=== PATIENT | male | born 1940 | race Caucasian/White ===

== ENCOUNTER → 2017-05-27 | Outpatient (CLI) | payer MEDICARE ==
[~2017-05-27] MED LIST: ASPIRIN81 M1; ambien; xanax
--- NOTE | 2017-05-27 15:01 | Diagnostic Imaging Report ---
PROCEDURE:CT CHEST WITHOUT CONTRAST COMPARISON:Report chest x-ray 09/14/2007. No cross-sectional imaging of the chest at this institution for comparison. INDICATIONS:SMOKER TECHNIQUE:2.5 mm images were obtained from the lung apices through the adrenal glands without intravenous contrast administration. DLP: 264.6 mGy*cm FINDINGS: LUNGS:Mild centrilobular and paraseptal emphysema in the upper lung zones. There is posterior groundglass attenuation of articulation and extends into the lung bases. No consolidation. No soft tissue mass. Soft tissue nodule in the right lower lobe abutting the hilar vessels measures 1.1 x 1.2 cm and contains a central calcification. LYMPH NODES: No enlarged axillary, supraclavicular, or mediastinal lymph nodes. THYROID/BASE OF NECK: Low attenuated nodule the right thyroid lobe measures 2.0 x 2.1 cm. VASCULATURE:Scattered atherosclerotic calcifications of the aorta. The ascending aorta measures 3.6 x 3.5 cm. The main pulmonary artery measures 2.5 cm. MEDIASTINUMThe heart is normal in size. No pericardial effusion. The esophagus is normal. PLEURA:No pleural effusion. Lipoma in the lateral left chest between the second and third ribs measures 2.6 x 1.7 cm. CHEST WALL:Normal. LIMITED ABDOMEN:Visualized portions of the upper abdomen demonstrate no evidence of mass or infiltrate. BONES:Mild wedging of the T4 vertebral body. The spinal canal is patent. There is a fusion plate in the lower cervical spine, incompletely imaged. Visualized portion of the hardware is normal. The soft tissues are unremarkable. CONCLUSION: 1. Emphysema and minimal peripheral reticulation suggestive of early fibrosis. 2. Right lower lobe pulmonary nodule suggestive of a hamartoma or healed granulomatous inflammation. Annual surveillance of the lungs with low dose screening CT is recommended given the history of smoking. 3. Nodule in the right thyroid lobe as described above. Recommend further evaluation with thyroid ultrasound. 4. 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 Dictated by: Milo Arana M.D. on 05/27/2017 at 15:02 Electronically approved by: Milo Arana M.D. on 05/27/2017 at 15:02
== END ==
LOC: CT 13:52
PROVIDERS: ATTEND Family Medicine
DX: R07.89 Other chest pain (principal); R93.8 Abnormal findings on diagnostic imaging of other specified body structures; Z87.891 Personal history of nicotine dependence
CPT/HCPCS: 71250

== ENCOUNTER → 2017-07-06 | Outpatient (CLI) | payer MEDICARE ==
--- NOTE | 2017-07-08 08:11 | Diagnostic Imaging Report ---
TECHNIQUE: Magnetic resonance imaging of the LEFT HIP was performed WITHOUT injected contrast. HISTORY: Pain, left hip, chronic, at the time of the MRI the patient reportedly states the pain is right more than left COMPARISON: None available. FINDINGS: Bone: No focal or infiltrative bone marrow replacing abnormality. No osteonecrosis or acute fracture. Femoroacetabular Joint - left: Acetabular labrum: Complex degenerative tearing and attenuation, most notably the anterosuperior labrum. Articular Cartilage: Low to intermediate grade erosion of the weightbearing cartilage. Muscle and tendons: Focal high-grade partial tearing of the anterior fibers of the gluteus medius tendon near the greater trochanter (series 7 image 14) with trace adjacent fluid. Other: * Left convex curvature of the visualized lumbosacral spine with multilevel degenerative changes, likely moderate to severe, right greater than left. * Nonspecific heterogeneity and mild enlargement of the prostate on this nondiagnostic prostate MRI. * Incidentally, mild degenerative changes of the right hip. IMPRESSION: 1. Mild degenerative changes of the left hip, including degenerative tearing of the labrum. 2. Partial tearing of the left gluteus medius tendon and minimal left greater trochanteric bursitis. 3. Incompletely characterized moderate to severe degenerative changes of the visualized lumbosacral spine, right greater than left. Signed by: Dr. Georgi Kerr D.O., M.M.M. on 07/08/2017 8:07 AM
== END ==
LOC: MRI 09:23
PROVIDERS: ATTEND Family Medicine
DX: M25.552 Pain in left hip (principal); E04.1 Nontoxic single thyroid nodule

== ENCOUNTER → 2019-11-25 | Day surgery (SDC) | payer MEDICARE, OTHER ==
[2019-11-20 15:31] LABS: BASOPHILS % 0.6 % (0.0-1.0); EOSINOPHILS # (AUTO) 0.2 (0.0-0.4); EOSINOPHILS % 2.8 % (0.0-6.0); HEMATOCRIT 43.8 % (38.2-49.6); HEMOGLOBIN 14.2 g/dL (14.0-18.0); LYMPHOCYTES # (AUTO) 1.9 (1.0-3.2); LYMPHOCYTES % 34.7 % (18.0-39.1); MEAN CORPUSCULAR HEMOGLOBIN 30.9 pg (28-32); MEAN CORPUSCULAR HGB CONC 32.4 g/dL (31-35); MEAN CORPUSCULAR VOLUME 95.2 fL (81-99); MONOCYTES # (AUTO) 0.5 (0.2-0.8); MONOCYTES % 8.8 % (4.4-11.3); NEUTROPHILS # (AUTO) 2.8 (2.1-6.9); NEUTROPHILS % 52.7 % (38.7-80.0); PLATELET COUNT 229 x10e3/uL (140-360); RED CELL DISTRIBUTION WIDTH 15.1 % (11.7-14.4)
[~2019-11-25] MED LIST changes: +CLOPIDOGREL75 MG PO; +FLOMAX0.4 MG PO; +LIDOCAINE HCL 2% LOCAL INJ 5 ML SDV VIAL INJ ONE; +METOCLOPRAMIDE HCL 10 MG/2ML VIAL ONE; +PANTOPRAZOLE 40 MG 10ML VIAL ONE; +PROPOFOL IV EMULSION 10 MG/ML 20 ML VIAL ONE; +SODIUM CHLORIDE 0.9% 50ML 50 ML ONE
[2019-11-25 11:10] VITALS: BP 124/85
--- NOTE | 2019-11-26 03:53 | Operative Report ---
DATE OF PROCEDURE: 11/25/2019 SURGEON: Juan Manuel Bella MD PROCEDURE: EGD with biopsies. INDICATIONS FOR EGD: Upper abdominal pain, melena. MEDICATIONS: The patient was done under MAC, please see anesthesiologist's note. PROCEDURE IN DETAIL: With the patient in the left lateral decubitus position, a flexible fiberoptic Olympus gastroscope was introduced into the esophagus under direct visualization without any difficulty. There was some patchy erythema noted in distal esophagus. A minute tongue of velvety red mucosa was noted to extend proximally from the GE junction that was biopsied to rule out Harrison. The focal nodularity was noted at the GE junction that was biopsied. The scope was then advanced with ease into the stomach, traversing a small sliding hiatal hernia. Mucosa overlying the antrum and the body revealed some patchy intense erythema and moderate edema, and biopsies were obtained and sent to stain for H. pylori. The pylorus was of normal contour and shape, was intubated with ease and the scope was advanced all the way to the second portion of the duodenum. The scope was then withdrawn slowly. An approximately 1 cm ulcer with heaped up margins was noted in the distal bulb. There was no active bleeding. The scope was then withdrawn back into the stomach and retroflexed, mucosa overlying the fundus and the cardia appeared to be within normal limits. The scope was then straightened out, it was subsequently withdrawn, and the patient tolerated the procedure well. IMPRESSION: 1. Distal esophagitis, mild. 2. Rule out Harrison esophagus. 3. Focal nodularity, GE junction, biopsied. 4. Small sliding hiatal hernia. 5. Gastritis, biopsied, biopsies sent to stain for Helicobacter pylori. 6. Large ulcer, distal duodenal bulb without active bleeding. PLAN: Follow up histology. Initiate Protonix 40 mg one p.o. q.a.m. before meals and Carafate 1 g p.o. before meals t.i.d. and at bedtime. Juan Manuel Bella MD [facility] [place] /[id number] cc: Yandel Wright DO
== END | disposition home or self-care (01) ==
LOC: OR 08:50
PROVIDERS: ATTEND Internal Medicine Gastroenterology
DX: K29.50 Unspecified chronic gastritis without bleeding (principal); K26.9 Duodenal ulcer, unspecified as acute or chronic, without hemorrhage or perforation; K20.9 Esophagitis, unspecified; K22.8 Other specified diseases of esophagus; K44.9 Diaphragmatic hernia without obstruction or gangrene; R03.0 Elevated blood-pressure reading, without diagnosis of hypertension; Z88.6 Allergy status to analgesic agent; Z01.812 Encounter for preprocedural laboratory examination; Z11.59 Encounter for screening for other viral diseases; Z79.02 Long term (current) use of antithrombotics/antiplatelets; Z79.82 Long term (current) use of aspirin; Z87.891 Personal history of nicotine dependence
CPT/HCPCS: 36415; 43239; 85025; C9113; J2001; J2704; J2765; U0002

== ENCOUNTER 2020-01-22 11:21 | Observation (INO) | payer MEDICARE ==
[2020-01-19 10:10] LABS: BASOPHILS % 0.3 % (0.0-1.0); EOSINOPHILS # (AUTO) 0.1 (0.0-0.4); EOSINOPHILS % 1.3 % (0.0-6.0); HEMOGLOBIN 14.9 g/dL (14.0-18.0); LYMPHOCYTES # (AUTO) 1.5 (1.0-3.2); LYMPHOCYTES % 19.4 % (18.0-39.1); MEAN CORPUSCULAR HGB CONC 33.1 g/dL (31-35); MEAN CORPUSCULAR VOLUME 96.6 fL (81-99); MONOCYTES # (AUTO) 0.6 (0.2-0.8); MONOCYTES % 7.9 % (4.4-11.3); NEUTROPHILS # (AUTO) 5.4 (2.1-6.9); PLATELET COUNT 221 x10e3/uL (140-360); RED BLOOD COUNT 4.66 x10e6/uL (4.3-5.7); RED CELL DISTRIBUTION WIDTH 14.4 % (11.7-14.4)
[2020-01-19 10:39] LABS: ALANINE AMINOTRANSFERASE 33 IU/L (0-55); ALBUMIN 3.9 g/dL (3.5-5.0); ALBUMIN/GLOBULIN RATIO 1.2 (0.8-2.0); ALKALINE PHOSPHATASE 93 IU/L (40-150); ANION GAP 12.8 mmol/L (8-16); BLOOD UREA NITROGEN 15 mg/dL (7-26); BUN/CREATININE RATIO 18 (6-25); CALCIUM 9.6 mg/dL (8.4-10.2); CARBON DIOXIDE 23 mmol/L (22-29); CHLORIDE 107 mmol/L (98-107); CREATININE, SERUM 0.84 mg/dL (0.72-1.25); EST GLOMERULAR FILTRATION RATE > 60 ML/MIN (60-); GLUCOSE 109 mg/dL (74-118); POTASSIUM 3.8 mmol/L (3.5-5.1); SODIUM 139 mmol/L (136-145)
[~2020-01-22] VITALS: Ht 180.3 cm; Wt 83.9 kg
[~2020-01-22 11:21] MED LIST changes: -LIDOCAINE HCL 2% LOCAL INJ 5 ML SDV VIAL INJ ONE; -METOCLOPRAMIDE HCL 10 MG/2ML VIAL ONE; -PANTOPRAZOLE 40 MG 10ML VIAL ONE; -PROPOFOL IV EMULSION 10 MG/ML 20 ML VIAL ONE; -SODIUM CHLORIDE 0.9% 50ML 50 ML ONE
[2020-01-22] MEDS ORDERED: CEFAZOLIN SOD 1 GM/NS 50ML 100 ML IV ONE (11:58)
[2020-01-22] MEDS ORDERED: DEXAMETHASONE SOD PHOS INJ 4 MG/ML VIAL ONE (12:25)
[2020-01-22] MEDS ORDERED: EPHEDRINE SULFATE INJ 50 MG/ML VIAL ONE (12:25)
[2020-01-22] MEDS ORDERED: ONDANSETRON HCL INJ 2MG/ML 2ML 2 MG/ML VIAL ONE (12:25)
[2020-01-22] MEDS ORDERED: FENTANYL CITRATE/PF 100MCG/2 ML INJ ONE ×2 (12:25→14:59)
[2020-01-22] MEDS ORDERED: LIDOCAINE HCL 2% LOCAL INJ 5 ML SDV VIAL INJ ONE (12:25)
[2020-01-22] MEDS ORDERED: SEVOFLURANE INHAL SOLN 250 ML PEN BTL ONE (12:25)
[2020-01-22] MEDS ORDERED: PROPOFOL IV EMULSION 10 MG/ML 20 ML VIAL ONE (12:25)
[2020-01-22] MEDS ORDERED: IOPAMIDOL 300MG/ML 50ML INFUS..BTL IV ONE (12:48)
[2020-01-22] MEDS ORDERED: B&O 60MG R/S 60 MG SUPP PR ONE (12:48)
[2020-01-22] MEDS ORDERED: ACETAMINOPHEN 1000 MG/100 ML 100 ML IV ONE (15:14)
[2020-01-22] MEDS ORDERED: MORPHINE SULFATE INJ 4 MG/ML INJ 1ML ONE (15:14)
[2020-01-22] MEDS ORDERED: HYDROMORPHONE 1MG/1ML INJ ONE ×2 (15:33→16:12)
[2020-01-22 16:55] VITALS: BP 140/77
[2020-01-22 17:08] VITALS: BP 140/77
[2020-01-22] MEDS ORDERED: ONDANSETRON HCL INJ 2MG/ML 2ML 2 MG/ML VIAL IV PRN (17:15)
[2020-01-22] MEDS ORDERED: HYDROCODONE/APAP 7.5MG-325MG 1 EA TAB PO PRN (17:15)
[2020-01-22] MEDS ORDERED: B&O 60MG R/S 60 MG SUPP PR PRN (17:15)
[2020-01-22] MEDS: LACTATED RINGER'S 1,000 ML INJ SCH (17:45)
[2020-01-22 21:49] VITALS: BP 123/63
[2020-01-23] VITALS: BP 104/57
[2020-01-23] MEDS: LACTATED RINGER'S 1,000 ML INJ SCH ×2 (00:24→08:18)
[2020-01-23 04:00] VITALS: BP 120/68
[2020-01-23 08:17] VITALS: BP 120/68
[2020-01-23 11:14] VITALS: BP 130/70
== END 2020-01-23 12:37 | disposition home or self-care (01) ==
LOC: OR 11:21 → PACU V 15:20 → MED/SURG 16:32
PROVIDERS: ADMIT Urology; ATTEND Urology
DX: N40.1 Benign prostatic hyperplasia with lower urinary tract symptoms (principal); R33.8 Other retention of urine; Z82.49 Family history of ischemic heart disease and other diseases of the circulatory system; Z87.891 Personal history of nicotine dependence; Z01.810 Encounter for preprocedural cardiovascular examination; Z01.812 Encounter for preprocedural laboratory examination; Z01.818 Encounter for other preprocedural examination; Z20.828 Contact with and (suspected) exposure to other viral communicable diseases
CPT/HCPCS: 36415; 52601; 71046; 80053; 85025; 87086; 88305; 93005; C1758; G0378 ×2; J0131; J0690; J1170; J2270; J3010; J7121 ×2; Q9967; U0002; J1100; J2001; J2405

== ENCOUNTER → 2020-03-13 | Outpatient (CLI) | payer OTHER ==
[~2020-03-13] MED LIST changes: +COVID-19 VACC, MRNA(MODERNA)/PF 100 MCG/0.5 ML VIAL IM ONE
== END ==
LOC: VACCPMC 16:00
DX: Z23 Encounter for immunization (principal); Z20.822 Contact with and (suspected) exposure to COVID-19

== ENCOUNTER → 2020-04-13 | Outpatient (CLI) | payer OTHER | END | DRG 951 | LOC: VACCPMC 08:47 | DX: Z23 Encounter for immunization (principal); Z20.822 Contact with and (suspected) exposure to COVID-19 | CPT/HCPCS: 0012A; 91301 ==

== ENCOUNTER → 2020-06-20 | Day surgery (SDC) | payer MEDICARE ==
[2020-06-16 09:22] LABS: BASOPHILS % 0.5 % (0.0-1.0); HEMATOCRIT 43.4 % (38.2-49.6); HEMOGLOBIN 14.4 g/dL (14.0-18.0); LYMPHOCYTES # (AUTO) 1.6 (1.0-3.2); LYMPHOCYTES % 38.5 % (18.0-39.1); MEAN CORPUSCULAR HEMOGLOBIN 32.4 pg (28-32); MEAN CORPUSCULAR HGB CONC 33.2 g/dL (31-35); MEAN CORPUSCULAR VOLUME 97.5 fL (81-99); MONOCYTES # (AUTO) 0.4 (0.2-0.8); MONOCYTES % 8.6 % (4.4-11.3); NEUTROPHILS # (AUTO) 2.1 (2.1-6.9); NEUTROPHILS % 51.2 % (38.7-80.0); PLATELET COUNT 200 x10e3/uL (140-360); RED BLOOD COUNT 4.45 x10e6/uL (4.3-5.7); RED CELL DISTRIBUTION WIDTH 14.7 % (11.7-14.4)
[~2020-06-20] MED LIST changes: -COVID-19 VACC, MRNA(MODERNA)/PF 100 MCG/0.5 ML VIAL IM ONE; +PROPOFOL IV EMULSION 10 MG/ML 20 ML VIAL ONE; +PROTONIX20 MG PO; +SUCRALFATE1 GM PO; +TYLENOL PM PO
[2020-06-20 09:30] VITALS: BP 134/82
== END | disposition home or self-care (01) ==
LOC: OR 06:14
PROVIDERS: ATTEND Internal Medicine Gastroenterology
DX: K20.90 Esophagitis, unspecified without bleeding (principal); K29.70 Gastritis, unspecified, without bleeding; K22.70 Barrett's esophagus without dysplasia; K44.9 Diaphragmatic hernia without obstruction or gangrene; K31.89 Other diseases of stomach and duodenum; K21.9 Gastro-esophageal reflux disease without esophagitis; K27.9 Peptic ulcer, site unspecified, unspecified as acute or chronic, without hemorrhage or perforation; I49.3 Ventricular premature depolarization; Z88.6 Allergy status to analgesic agent; Z01.810 Encounter for preprocedural cardiovascular examination; Z01.812 Encounter for preprocedural laboratory examination; Z20.822 Contact with and (suspected) exposure to COVID-19; Z79.02 Long term (current) use of antithrombotics/antiplatelets; Z87.891 Personal history of nicotine dependence
CPT/HCPCS: 36415; 43239; 85025; 93005; J2704; U0002

== ENCOUNTER → 2021-01-11 | Outpatient (CLI) | payer MEDICARE, OTHER ==
[~2021-01-11] MED LIST changes: +COVID-19 VACC, MRNA(MODERNA)/PF 100 MCG/0.5 ML VIAL IM ONE; -PROPOFOL IV EMULSION 10 MG/ML 20 ML VIAL ONE
== END ==
LOC: VACCPMC 11:00
DX: Z23 Encounter for immunization (principal); Z20.822 Contact with and (suspected) exposure to COVID-19
CPT/HCPCS: 91301

== ENCOUNTER 2021-07-22 23:23 | Inpatient (IN) | payer MEDICARE, OTHER ==
[~2021-07-22] VITALS: Ht 180.3 cm; Wt 83.9 kg
[~2021-07-22 23:23] MED LIST changes: -COVID-19 VACC, MRNA(MODERNA)/PF 100 MCG/0.5 ML VIAL IM ONE
[2021-07-22] MEDS ORDERED: SODIUM CHLORIDE 0.9% 1000ML 1,000 ML IV STA (23:36)
[2021-07-22] MEDS ORDERED: ONDANSETRON HCL INJ 2MG/ML 2ML 2 MG/ML VIAL IV PRN (23:45)
[2021-07-22 23:51] LABS: BASOPHILS % 0.1 % (0.0-1.0); HEMOGLOBIN 10.3 g/dL (14.0-18.0); LYMPHOCYTES # (AUTO) 1.3 (1.0-3.2); LYMPHOCYTES % 6.7 % (18.0-39.1); MEAN CORPUSCULAR HEMOGLOBIN 34.2 pg (28-32); MEAN CORPUSCULAR HGB CONC 32.2 g/dL (31-35); MEAN CORPUSCULAR VOLUME 106.3 fL (81-99); NEUTROPHILS # (AUTO) 16.9 (2.1-6.9); PLATELET COUNT 292 x10e3/uL (140-360); RED BLOOD COUNT 3.01 x10e6/uL (4.3-5.7); RED CELL DISTRIBUTION WIDTH 13.9 % (11.7-14.4)
[2021-07-22] MEDS ORDERED: SODIUM CHLORIDE 0.9% 1000ML 1,000 ML ONE (23:53)
[2021-07-22 23:58] LABS: INR 0.94; PROTHROMBIN TIME 13.4 seconds (11.9-14.5)
[2021-07-23 00:09] LABS: ALBUMIN 3.5 g/dL (3.5-5.0); ALBUMIN/GLOBULIN RATIO 1.2 (0.8-2.0); ANION GAP 18.3 mmol/L (8-16); CALCIUM 9.3 mg/dL (8.4-10.2); CREATININE, SERUM 1.54 mg/dL (0.72-1.25); POTASSIUM 4.3 mmol/L (3.5-5.1)
[2021-07-23 00:26] LABS: MAGNESIUM 2.1 MG/DL (1.3-2.1)
[2021-07-23] MEDS ORDERED: SODIUM CHLORIDE 0.9% 100 ML ONE (00:45)
[2021-07-23] MEDS ORDERED: IOPAMIDOL 370 MG/ML 100 ML INFUS..BTL INJ ONE (00:45)
[2021-07-23] MEDS ORDERED: SODIUM CHLORIDE 0.9% 1000ML 1,000 ML IV SCH (01:30)
[2021-07-23 02:25] LABS: CLARITY,URINE CLEAR (CLEAR); COLOR,URINE YELLOW (YELLOW); KETONES,URINE NEGATIVE (NEGATIVE); LEUKOCYTE ESTERASE ,URINE NEGATIVE (NEGATIVE); NITRITE,URINE NEGATIVE (NEGATIVE); PROTEIN,URINE DIPSTICK NEGATIVE (NEGATIVE); URINE UROBILINOGEN 0.2 mg/dL (0.2 - 1)
[2021-07-23 02:30] LABS: BACTERIA,URINE MODERATE /HPF; EPITHELIAL CELLS,URINE FEW /LPF; HYALINE CASTS 0-1 (0-1); RBC,URINE 0-5 /HPF (0-5); WBC,URINE (MAN) 0-5 /HPF (0-5)
[2021-07-23] MEDS ORDERED: METRONIDAZOLE 500MG/NS 100ML 200 ML IV ONE (02:42)
[2021-07-23] MEDS: METRONIDAZOLE 750MG/NS 150ML 150 ML IV SCH ×3 (02:45→22:00)
[2021-07-23] MEDS ORDERED: SODIUM CHLORIDE 0.9% 1000ML 1,000 ML ONE (03:12)
[2021-07-23] MEDS: SODIUM CHLORIDE 0.9% 1000ML 1,000 ML IV SCH ×3 (03:15→23:56)
[2021-07-23] MEDS: SUCRALFATE 1 GM TAB PO SCH ×4 (07:57→21:00)
[2021-07-23 08:46] VITALS: BP 116/69
[2021-07-23 09:00] VITALS: BP 116/69
[2021-07-23] MEDS ORDERED: METRONIDAZOLE 750MG/NS 150ML 150 ML IV SCH (09:00)
[2021-07-23 11:51] VITALS: BP_SYST 91; BP_SYST 96; BP_SYST 99; BP_DIAS 48; BP_DIAS 50
[2021-07-23 12:42] LABS: HEMATOCRIT 24.1 % (38.2-49.6); HEMOGLOBIN 7.6 g/dL (14.0-18.0)
[2021-07-23 14:26] VITALS: BP 91/50
[2021-07-23 16:45] VITALS: BP 104/56
[2021-07-23 20:00] VITALS: BP 100/48
[2021-07-23 20:21] LABS: HEMATOCRIT 23.7 % (38.2-49.6); HEMOGLOBIN 7.4 g/dL (14.0-18.0)
[2021-07-24] VITALS (13 sets, daily range): BP systolic 93–133; BP diastolic 46–69
[2021-07-24] MEDS: SODIUM CHLORIDE 0.9% 1000ML 1,000 ML IV SCH ×3 (04:42→23:47)
[2021-07-24 06:26] LABS: BASOPHILS % 0.5 % (0.0-1.0); EOSINOPHILS # (AUTO) 0.1 (0.0-0.4); EOSINOPHILS % 1.2 % (0.0-6.0); HEMATOCRIT 23.3 % (38.2-49.6); LYMPHOCYTES # (AUTO) 1.9 (1.0-3.2); LYMPHOCYTES % 21.2 % (18.0-39.1); MEAN CORPUSCULAR VOLUME 113.1 fL (81-99); MONOCYTES # (AUTO) 0.7 (0.2-0.8); MONOCYTES % 8.2 % (4.4-11.3); NEUTROPHILS % 67.8 % (38.7-80.0); PLATELET COUNT 188 x10e3/uL (140-360); RED BLOOD COUNT 2.06 x10e6/uL (4.3-5.7); RED CELL DISTRIBUTION WIDTH 14.7 % (11.7-14.4)
[2021-07-24 06:31] LABS: ANION GAP 9.9 mmol/L (8-16); CALCIUM 8.3 mg/dL (8.4-10.2); CREATININE, SERUM 0.75 mg/dL (0.72-1.25); POTASSIUM 3.9 mmol/L (3.5-5.1)
[2021-07-24] MEDS: METRONIDAZOLE 750MG/NS 150ML 150 ML IV SCH ×3 (06:48→22:00)
[2021-07-24] MEDS: SUCRALFATE 1 GM TAB PO SCH ×4 (07:00→21:11)
[2021-07-24] MEDS ORDERED: SODIUM CHLORIDE 0.9% 250ML 250 ML IV ONE (08:00)
[2021-07-24] MEDS ORDERED: FUROSEMIDE INJ 10 MG/ML 2 ML VIAL IV ONE ×2 (11:30→15:30)
[2021-07-24] MEDS ORDERED: SODIUM CHLORIDE 0.9% 250ML 250 ML ONE ×2 (11:32→17:24)
[2021-07-24 12:12] LABS: HEMATOCRIT 23.1 % (38.2-49.6)
[2021-07-24] MEDS ORDERED: LIDOCAINE HCL 2% LOCAL INJ 5 ML SDV VIAL INJ ONE (12:30)
[2021-07-24] MEDS ORDERED: PROPOFOL IV EMULSION 10 MG/ML 20 ML VIAL ONE (12:30)
[2021-07-24] MEDS ORDERED: MIDAZOLAM HCL 2 MG/2 ML VIAL ONE (13:26)
[2021-07-24 23:39] LABS: HEMATOCRIT 25.6 % (38.2-49.6); HEMOGLOBIN 8.3 g/dL (14.0-18.0)
[2021-07-25] VITALS (16 sets, daily range): BP systolic 104–150; BP diastolic 51–89
[2021-07-25] MEDS: SODIUM CHLORIDE 0.9% 1000ML 1,000 ML IV SCH ×3 (04:02→23:30)
[2021-07-25] MEDS: METRONIDAZOLE 750MG/NS 150ML 150 ML IV SCH ×3 (06:48→21:41)
[2021-07-25] MEDS: SUCRALFATE 1 GM TAB PO SCH ×4 (07:30→20:55)
[2021-07-26] MEDS ORDERED: BISACODYL 5 MG TAB EC PO ONE ×2 (00:15→00:45)
[2021-07-26 00:21] LABS: FERRITIN 108.67 ng/mL (21.81-274.66)
[2021-07-26 04:00] VITALS: BP 124/69
[2021-07-26] MEDS ORDERED: CITRATE OF MAGNESIA 300ML BOTTLE PO ONE ×2 (05:00→07:00)
[2021-07-26] MEDS: METRONIDAZOLE 750MG/NS 150ML 150 ML IV SCH ×3 (05:50→22:00)
[2021-07-26] MEDS: SUCRALFATE 1 GM TAB PO SCH ×4 (05:50→20:24)
[2021-07-26 08:00] VITALS: BP 124/69
[2021-07-26 08:48] VITALS: BP 137/78
[2021-07-26 09:41] LABS: BASOPHILS % 0.3 % (0.0-1.0); EOSINOPHILS # (AUTO) 0.2 (0.0-0.4); EOSINOPHILS % 2.7 % (0.0-6.0); HEMATOCRIT 28.5 % (38.2-49.6); HEMOGLOBIN 9.2 g/dL (14.0-18.0); LYMPHOCYTES # (AUTO) 1.4 (1.0-3.2); LYMPHOCYTES % 19.9 % (18.0-39.1); MEAN CORPUSCULAR HEMOGLOBIN 31.9 pg (28-32); MEAN CORPUSCULAR HGB CONC 32.3 g/dL (31-35); MONOCYTES # (AUTO) 0.6 (0.2-0.8); MONOCYTES % 8.3 % (4.4-11.3); NEUTROPHILS # (AUTO) 4.6 (2.1-6.9); NEUTROPHILS % 67.6 % (38.7-80.0); PLATELET COUNT 182 x10e3/uL (140-360); RED BLOOD COUNT 2.88 x10e6/uL (4.3-5.7)
[2021-07-26 09:59] LABS: ANION GAP 8.3 mmol/L (8-16); CALCIUM 8.3 mg/dL (8.4-10.2); CREATININE, SERUM 0.69 mg/dL (0.72-1.25); POTASSIUM 3.3 mmol/L (3.5-5.1)
[2021-07-26] MEDS: SODIUM CHLORIDE 0.9% 1000ML 1,000 ML IV SCH ×2 (11:45→21:00)
[2021-07-26 12:09] VITALS: BP 127/69
[2021-07-26] MEDS ORDERED: PHENYLEPHRINE HCL 1% 10 MG/ML VIAL ONE (12:17)
[2021-07-26] MEDS ORDERED: POVIDONE IODINE 0.05% 0.05 % ML PO ONE (12:17)
[2021-07-26] MEDS ORDERED: PROPOFOL IV EMULSION 10 MG/ML 20 ML VIAL ONE (12:17)
[2021-07-26] MEDS ORDERED: LIDOCAINE HCL 2% LOCAL INJ 5 ML SDV VIAL INJ ONE (12:17)
[2021-07-26] MEDS ORDERED: MIDAZOLAM HCL 2 MG/2 ML VIAL ONE (12:48)
[2021-07-26] MEDS ORDERED: HYOSCYAMINE SULFATE 0.5 MG/ML INJ ONE (17:04)
[2021-07-26 20:00] VITALS: BP 106/77
[2021-07-26 20:13] VITALS: BP 111/66
[2021-07-27] VITALS: BP 138/72
[2021-07-27] MEDS: SODIUM CHLORIDE 0.9% 1000ML 1,000 ML IV SCH (03:50)
[2021-07-27 04:00] VITALS: BP 118/67
[2021-07-27] MEDS: METRONIDAZOLE 750MG/NS 150ML 150 ML IV SCH (06:11)
[2021-07-27] MEDS: SUCRALFATE 1 GM TAB PO SCH (06:11)
[2021-07-27 08:06] VITALS: BP 137/71
[2021-07-27 08:18] VITALS: BP 137/71
[2021-07-27] MEDS ORDERED: POTASSIUM CHLORIDE 10MEQ EA PO ONE (10:00)
== END 2021-07-27 10:18 | disposition home or self-care (01) | DRG 378 ==
LOC: ER 23:36 → ERHOLD 07-23 03:28 → MED/SURG2 07-23 07:55
PROC: 0DB78ZX Excision of Stomach, Pylorus, Via Natural or Artificial Opening Endoscopic, Diagnostic (ICD-10-PCS; 2021-07-24)
PROC: 30233N1 Transfusion of Nonautologous Red Blood Cells into Peripheral Vein, Percutaneous Approach (ICD-10-PCS; 2021-07-24)
PROC: 0DBM8ZZ Excision of Descending Colon, Via Natural or Artificial Opening Endoscopic (ICD-10-PCS; principal; 2021-07-26 16:16)
DX: K57.31 Diverticulosis of large intestine without perforation or abscess with bleeding (principal); N17.9 Acute kidney failure, unspecified; E87.2 Acidosis; D62 Acute posthemorrhagic anemia; Z87.11 Personal history of peptic ulcer disease; I25.10 Atherosclerotic heart disease of native coronary artery without angina pectoris; I73.9 Peripheral vascular disease, unspecified; M54.50 Low back pain, unspecified; E78.5 Hyperlipidemia, unspecified; K21.9 Gastro-esophageal reflux disease without esophagitis; K64.8 Other hemorrhoids; K26.9 Duodenal ulcer, unspecified as acute or chronic, without hemorrhage or perforation; Z20.822 Contact with and (suspected) exposure to COVID-19; N40.0 Benign prostatic hyperplasia without lower urinary tract symptoms
CPT/HCPCS: 36415; 43239; 45378; 45385; 70450; 71045; 74174; 78278; 80048; 80053; 81001; 82270; 82607; 82728; 82746; 83540; 83605; 83690; 83735; 84466; 84484; 85014; 85018; 85025; 85045; 85610; 86850; 86900; 86920; 87040; 88305; 88312; 93005; 93306; 94799; 99251; 99284; A9512; J0696; J1940; J1980; J2001; J2250; J2370; J7030; J7050; P9016; Q9967; U0002

== ENCOUNTER 2021-08-11 10:33 | Inpatient (IN) | payer MEDICARE ==
[~2021-08-11] VITALS: Ht 177.8 cm; Wt 83.9 kg
[2021-08-11] MEDS ORDERED: SODIUM CHLORIDE 0.9% 1000ML 1,000 ML IV STA (10:51)
[2021-08-11 11:00] LABS: BASOPHILS % 0.6 % (0.0-1.0); EOSINOPHILS # (AUTO) 0.1 (0.0-0.4); EOSINOPHILS % 1.3 % (0.0-6.0); HEMATOCRIT 38.8 % (38.2-49.6); HEMOGLOBIN 11.9 g/dL (14.0-18.0); LYMPHOCYTES # (AUTO) 2.7 (1.0-3.2); MEAN CORPUSCULAR HGB CONC 30.7 g/dL (31-35); MONOCYTES # (AUTO) 0.8 (0.2-0.8); MONOCYTES % 11.2 % (4.4-11.3); NEUTROPHILS # (AUTO) 3.2 (2.1-6.9); NEUTROPHILS % 46.6 % (38.7-80.0); PLATELET COUNT 330 x10e3/uL (140-360); RED BLOOD COUNT 3.84 x10e6/uL (4.3-5.7); RED CELL DISTRIBUTION WIDTH 16.4 % (11.7-14.4)
[2021-08-11 11:22] LABS: BACTERIA,URINE FEW /HPF; CLARITY,URINE CLEAR (CLEAR); COLOR,URINE YELLOW (YELLOW); EPITHELIAL CELLS,URINE FEW /LPF; KETONES,URINE NEGATIVE (NEGATIVE); LEUKOCYTE ESTERASE ,URINE NEGATIVE (NEGATIVE); NITRITE,URINE NEGATIVE (NEGATIVE); PROTEIN,URINE DIPSTICK NEGATIVE (NEGATIVE); RBC,URINE 0-5 /HPF (0-5); URINE UROBILINOGEN 0.2 mg/dL (0.2 - 1); WBC,URINE (MAN) 0-5 /HPF (0-5)
[2021-08-11 11:47] LABS: INR 0.94; PROTHROMBIN TIME 13.4 seconds (11.9-14.5)
[2021-08-11 11:48] LABS: PARTIAL THROMBOPLASTIN TIME 33.6 seconds (23.8-35.5)
[2021-08-11 12:31] LABS: ALANINE AMINOTRANSFERASE 32 IU/L (0-55); ALBUMIN 3.2 g/dL (3.5-5.0); ALBUMIN/GLOBULIN RATIO 1.2 (0.8-2.0); ALKALINE PHOSPHATASE 77 IU/L (40-150); ANION GAP 15.4 mmol/L (8-16); BLOOD UREA NITROGEN 12 mg/dL (7-26); BUN/CREATININE RATIO 14 (6-25); CALCIUM 7.9 mg/dL (8.4-10.2); CARBON DIOXIDE 18 mmol/L (22-29); CHLORIDE 111 mmol/L (98-107); CREATINE KINASE 37 IU/L (30-200); CREATININE, SERUM 0.83 mg/dL (0.72-1.25); GLUCOSE 149 mg/dL (74-118); MAGNESIUM 1.7 MG/DL (1.3-2.1); POTASSIUM 3.4 mmol/L (3.5-5.1); SODIUM 141 mmol/L (136-145)
[2021-08-11] MEDS ORDERED: SODIUM CHLORIDE 0.9% 500ML 500 ML ONE (12:58)
[2021-08-11] MEDS ORDERED: ONDANSETRON HCL INJ 2MG/ML 2ML 2 MG/ML VIAL ONE (12:58)
[2021-08-11] MEDS ORDERED: Morphine 4mg INJECTION 4 MG/ML INJ ONE (12:58)
[2021-08-11] MEDS ORDERED: IOPAMIDOL 370 MG/ML 100 ML INFUS..BTL INJ ONE (13:04)
[2021-08-11] MEDS ORDERED: ONDANSETRON HCL INJ 2MG/ML 2ML 2 MG/ML VIAL IV STA (13:27)
[2021-08-11] MEDS ORDERED: Morphine 4mg INJECTION 4 MG/ML INJ IV ONE (13:30)
[2021-08-11] MEDS ORDERED: SODIUM CHLORIDE 0.9% 500ML 500 ML IV ONE (13:30)
[2021-08-11] MEDS ORDERED: KETOROLAC TROMETHAMINE 30 MG/ML VIAL IV STA (13:49)
[2021-08-11] MEDS ORDERED: HYDROMORPHONE 1MG/1ML INJ IV STA (13:49)
[2021-08-11] MEDS ORDERED: KETOROLAC TROMETHAMINE 30 MG/ML VIAL ONE (14:04)
[2021-08-11] MEDS ORDERED: ONDANSETRON HCL INJ 2MG/ML 2ML 2 MG/ML VIAL IV PRN (14:45)
[2021-08-11] MEDS ORDERED: KCL 20MEQ/.9 SOD CHL 1,000 ML IV ONE (14:45)
[2021-08-11] MEDS: FAMOTIDINE 20 MG/2 ML VIAL IV SCH ×2 (15:00→21:31)
[2021-08-11 16:01] LABS: CREATINE KINASE 21 IU/L (30-200)
[2021-08-11 16:30] VITALS: BP 174/90
[2021-08-11 17:09] VITALS: BP 174/90
[2021-08-11] MEDS: ACETAMIN/BUTALBITAL/CAFFEINE TAB PO PRN ×2 (17:41→21:31)
[2021-08-11] MEDS: SUCRALFATE 1 GM TAB PO SCH ×2 (17:41→21:31)
[2021-08-11 19:47] VITALS: BP 162/78
[2021-08-11 20:00] VITALS: BP 162/78
[2021-08-12] VITALS (7 sets, daily range): BP systolic 138–161; BP diastolic 73–89
[2021-08-12 00:57] LABS: CREATINE KINASE 14 IU/L (30-200)
[2021-08-12 05:09] LABS: BASOPHILS % 0.3 % (0.0-1.0); EOSINOPHILS % 0.2 % (0.0-6.0); HEMATOCRIT 37.3 % (38.2-49.6); HEMOGLOBIN 11.6 g/dL (14.0-18.0); LYMPHOCYTES # (AUTO) 0.8 (1.0-3.2); LYMPHOCYTES % 13.4 % (18.0-39.1); MEAN CORPUSCULAR HEMOGLOBIN 31.1 pg (28-32); MEAN CORPUSCULAR HGB CONC 31.1 g/dL (31-35); MONOCYTES # (AUTO) 0.5 (0.2-0.8); MONOCYTES % 7.7 % (4.4-11.3); NEUTROPHILS # (AUTO) 4.9 (2.1-6.9); NEUTROPHILS % 78.1 % (38.7-80.0); PLATELET COUNT 305 x10e3/uL (140-360); RED BLOOD COUNT 3.73 x10e6/uL (4.3-5.7); RED CELL DISTRIBUTION WIDTH 16.1 % (11.7-14.4)
[2021-08-12 05:46] LABS: ALBUMIN 3.3 g/dL (3.5-5.0); ANION GAP 15.2 mmol/L (8-16); CALCIUM 8.5 mg/dL (8.4-10.2); CREATININE, SERUM 0.81 mg/dL (0.72-1.25); POTASSIUM 4.2 mmol/L (3.5-5.1)
[2021-08-12 05:47] LABS: ALBUMIN/GLOBULIN RATIO 1.1 (0.8-2.0); CHOL/HDL RATIO 4.5 (3.9-4.7); CREATINE KINASE 23 IU/L (30-200)
[2021-08-12] MEDS: ACETAMIN/BUTALBITAL/CAFFEINE TAB PO PRN ×2 (06:58→10:40)
[2021-08-12] MEDS: FAMOTIDINE 20 MG/2 ML VIAL IV SCH ×2 (09:16→21:35)
[2021-08-12] MEDS: PANTOPRAZOLE SOD 40 MG TABEC PO SCH (09:16)
[2021-08-12] MEDS: SUCRALFATE 1 GM TAB PO SCH ×4 (09:16→21:35)
[2021-08-12] MEDS: SODIUM CHLORIDE 0.9% 1000ML 1,000 ML IV SCH ×2 (09:51→21:35)
[2021-08-12] MEDS: HYDROCODONE/APAP 7.5MG-325MG 1 EA TAB PO PRN ×3 (14:55→22:44)
[2021-08-12] MEDS ORDERED: GADOBENATE DIMEGLUMINE 1 ML IV ONE (15:16)
[2021-08-13] VITALS (8 sets, daily range): BP systolic 125–176; BP diastolic 49–98
[2021-08-13] MEDS: SODIUM CHLORIDE 0.9% 1000ML 1,000 ML IV SCH (04:56)
[2021-08-13 05:26] LABS: BASOPHILS % 0.6 % (0.0-1.0); EOSINOPHILS # (AUTO) 0.1 (0.0-0.4); EOSINOPHILS % 1.4 % (0.0-6.0); HEMATOCRIT 35.5 % (38.2-49.6); HEMOGLOBIN 10.8 g/dL (14.0-18.0); LYMPHOCYTES # (AUTO) 1.3 (1.0-3.2); LYMPHOCYTES % 19.5 % (18.0-39.1); MEAN CORPUSCULAR HEMOGLOBIN 30.7 pg (28-32); MEAN CORPUSCULAR HGB CONC 30.4 g/dL (31-35); MEAN CORPUSCULAR VOLUME 100.9 fL (81-99); MONOCYTES # (AUTO) 0.7 (0.2-0.8); MONOCYTES % 10.1 % (4.4-11.3); NEUTROPHILS # (AUTO) 4.5 (2.1-6.9); NEUTROPHILS % 67.9 % (38.7-80.0); PLATELET COUNT 268 x10e3/uL (140-360); RED BLOOD COUNT 3.52 x10e6/uL (4.3-5.7)
[2021-08-13 05:49] LABS: CALCIUM 8.5 mg/dL (8.4-10.2); CREATININE, SERUM 0.72 mg/dL (0.72-1.25)
[2021-08-13] MEDS: HYDROCODONE/APAP 7.5MG-325MG 1 EA TAB PO PRN ×4 (07:55→21:23)
[2021-08-13] MEDS: SUCRALFATE 1 GM TAB PO SCH ×4 (09:27→21:23)
[2021-08-13] MEDS: FAMOTIDINE 20 MG/2 ML VIAL IV SCH ×2 (09:29→21:22)
[2021-08-13] MEDS: PANTOPRAZOLE SOD 40 MG TABEC PO SCH (09:29)
[2021-08-13] MEDS ORDERED: Vancomycin IV 1 GM in SODIUM CHLORIDE 0.9% 250ML 250 ML IV ONE (10:30)
[2021-08-13] MEDS: FLUTICASONE PROPIONATE NASAL SPRAY NS SCH (11:25)
[2021-08-13] MEDS: MECLIZINE HCL 12.5 MG TAB PO SCH (11:26)
[2021-08-13] MEDS ORDERED: ATORVASTATIN 20 MG TAB PO SCH (21:00)
[2021-08-14 00:04] VITALS: BP 138/84
[2021-08-14 04:54] LABS: BASOPHILS % 0.5 % (0.0-1.0); EOSINOPHILS # (AUTO) 0.1 (0.0-0.4); EOSINOPHILS % 2.2 % (0.0-6.0); HEMATOCRIT 37.7 % (38.2-49.6); HEMOGLOBIN 11.6 g/dL (14.0-18.0); LYMPHOCYTES # (AUTO) 1.8 (1.0-3.2); LYMPHOCYTES % 28.7 % (18.0-39.1); MEAN CORPUSCULAR HEMOGLOBIN 30.6 pg (28-32); MEAN CORPUSCULAR HGB CONC 30.8 g/dL (31-35); MEAN CORPUSCULAR VOLUME 99.5 fL (81-99); MONOCYTES # (AUTO) 0.6 (0.2-0.8); MONOCYTES % 10.1 % (4.4-11.3); NEUTROPHILS # (AUTO) 3.7 (2.1-6.9); NEUTROPHILS % 58.3 % (38.7-80.0); PLATELET COUNT 260 x10e3/uL (140-360); RED BLOOD COUNT 3.79 x10e6/uL (4.3-5.7); RED CELL DISTRIBUTION WIDTH 15.8 % (11.7-14.4)
[2021-08-14 05:21] LABS: ALBUMIN 3.2 g/dL (3.5-5.0); ALBUMIN/GLOBULIN RATIO 1.1 (0.8-2.0); ANION GAP 13.2 mmol/L (8-16); CALCIUM 8.3 mg/dL (8.4-10.2); CREATININE, SERUM 0.73 mg/dL (0.72-1.25); POTASSIUM 3.2 mmol/L (3.5-5.1)
[2021-08-14 05:56] VITALS: BP 150/99
[2021-08-14 07:56] VITALS: BP 155/81
[2021-08-14] MEDS: FLUTICASONE PROPIONATE NASAL SPRAY NS SCH (08:00)
[2021-08-14] MEDS: SUCRALFATE 1 GM TAB PO SCH ×2 (08:00→11:49)
[2021-08-14] MEDS: FAMOTIDINE 20 MG/2 ML VIAL IV SCH (08:00)
[2021-08-14] MEDS: MECLIZINE HCL 12.5 MG TAB PO SCH (08:00)
[2021-08-14] MEDS: PANTOPRAZOLE SOD 40 MG TABEC PO SCH (08:00)
[2021-08-14] MEDS: HYDROCODONE/APAP 7.5MG-325MG 1 EA TAB PO PRN ×2 (08:02→13:34)
[2021-08-14 08:03] VITALS: BP 155/81
[2021-08-14] MEDS ORDERED: POTASSIUM CHLORIDE 10MEQ EA PO ONE (11:30)
[2021-08-14 11:35] VITALS: BP 161/84
[2021-08-14] MEDS ORDERED: ONDANSETRON HCL 4 MG ORAL DISINTEGRATING TAB PO PRN (13:15)
[2021-08-14] MEDS ORDERED: ANTIVERT25 M1 PO (13:20)
[2021-08-14] MEDS ORDERED: FAMOTIDINE 20 MG TAB PO SCH (21:00)
== END 2021-08-14 14:15 | disposition home or self-care (01) | DRG 155 ==
LOC: ER 10:45 → ERHOLD 14:47 → MED/SURG 16:01 → OBSVTOIN 16:52
DX: H92.03 Otalgia, bilateral (principal); I50.32 Chronic diastolic (congestive) heart failure; I49.9 Cardiac arrhythmia, unspecified; I25.10 Atherosclerotic heart disease of native coronary artery without angina pectoris; I65.02 Occlusion and stenosis of left vertebral artery; I11.0 Hypertensive heart disease with heart failure; R42 Dizziness and giddiness; E78.5 Hyperlipidemia, unspecified; I73.9 Peripheral vascular disease, unspecified; H91.90 Unspecified hearing loss, unspecified ear; Z98.61 Coronary angioplasty status; G89.29 Other chronic pain; M54.9 Dorsalgia, unspecified; Z20.822 Contact with and (suspected) exposure to COVID-19; R51.9 Headache, unspecified; K26.9 Duodenal ulcer, unspecified as acute or chronic, without hemorrhage or perforation; K57.90 Diverticulosis of intestine, part unspecified, without perforation or abscess without bleeding; Z88.5 Allergy status to narcotic agent; I95.1 Orthostatic hypotension; N42.9 Disorder of prostate, unspecified
CPT/HCPCS: 36415; 51700; 70450; 70544; 70549; 71045; 74177; 80048; 80053; 80061; 81001; 82550; 82553; 83735; 83880; 84443; 84484; 85025; 85610; 85651; 85730; 86850; 86900; 87040; 87071; 87205; 93005; 93880; 94799; 97139; 99251; 99285; J1170; J1885; J2270; J2405; J3370; J7030; J7040; J7050; Q9967

== ENCOUNTER → 2023-10-22 | Outpatient (REF) | payer MEDICARE ==
[~2023-10-22] MED LIST changes: +ANTIVERT25 M1 PO
== END ==
LOC: US 10:07
PROVIDERS: ATTEND Family Medicine
DX: R19.7 Diarrhea, unspecified (principal); R10.9 Unspecified abdominal pain
CPT/HCPCS: 76700

== ENCOUNTER → 2024-02-28 | Outpatient (REF) | payer MEDICARE | LOC: US 13:34 | PROVIDERS: ATTEND Family Medicine | DX: R22.31 Localized swelling, mass and lump, right upper limb (principal) | CPT/HCPCS: 76882 ==

== ENCOUNTER → 2024-03-30 | Outpatient (REF) | payer MEDICARE ==
[~2024-03-30] MED LIST changes: +IOPAMIDOL 370 MG/ML 100 ML INFUS..BTL INJ ONE
[2024-03-30 10:37] LABS: CREATININE, SERUM 0.8 mg/dL (0.72-1.25)
== END ==
LOC: CT 09:32
PROVIDERS: ATTEND Family Medicine
DX: R22.31 Localized swelling, mass and lump, right upper limb (principal)
CPT/HCPCS: 36415; 73201; 82565; 84520; Q9967